=== PATIENT | male | born 1990 | race Two or more races ===

== ENCOUNTER 2018-08-14 00:56 | Emergency (ER) | payer OTHER ==
[~2018-08-14] VITALS: Ht 175.3 cm; Wt 93.0 kg
[2018-08-14 00:58] VITALS: BP 132/76
== END 2018-08-14 01:16 ==
LOC: ER 00:57
DX: F10.920 Alcohol use, unspecified with intoxication, uncomplicated (principal); F12.90 Cannabis use, unspecified, uncomplicated
CPT/HCPCS: 99283